=== PATIENT | male | born 1965 | race Caucasian/White ===

== ENCOUNTER 2017-06-03 18:02 | Emergency (ER) | payer SELFPAY ==
[~2017-06-03] VITALS: Ht 180.3 cm; Wt 115.0 kg
[~2017-06-03 18:02] MED LIST: APIX5TAB PO; LISI-167 PO
[2017-06-03 18:05] VITALS: BP 172/120
== END 2017-06-03 19:20 | disposition home or self-care (01) ==
LOC: ED 19:15
DX: Z76.0 Encounter for issue of repeat prescription (principal); I10 Essential (primary) hypertension; G62.9 Polyneuropathy, unspecified
CPT/HCPCS: 99283